=== PATIENT | male | born 1980 | race Two or more races ===

== ENCOUNTER → 2019-07-18 | Outpatient (REF) | payer OTHER | LOC: M SFHCLERA 10:18 | PROVIDERS: ATTEND Physician Assistant | DX: J02.9 Acute pharyngitis, unspecified (principal) ==

== ENCOUNTER → 2019-11-05 | Outpatient (REF) | payer OTHER | LOC: M SMT 13:40 | PROVIDERS: ATTEND Urology | DX: Z30.2 Encounter for sterilization (principal) ==